=== PATIENT | female | born 1980 | race Caucasian/White ===

== ENCOUNTER 2017-01-21 20:29 | Emergency (ER) | payer OTHER ==
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
[2017-01-21 20:43] VITALS: BP 144/96; PULSE 90; TEMP 98.1; BMI 24.7
[2017-01-21] MEDS ORDERED: diphenhydrAMINE HCL 25 MG CAPSULE (FP) PO ONE (21:54)
[2017-01-21] MEDS ORDERED: METOCLOPRAMIDE HCL 10 MG TABLET (FP) PO ONE ×2 (21:55→21:57)
== END 2017-01-21 22:11 | disposition home or self-care (01) ==
LOC: FER 20:29
DX: S06.0X0A Concussion without loss of consciousness, initial encounter (principal); R51 Headache; Y04.2XXA Assault by strike against or bumped into by another person, initial encounter; X58.XXXA Exposure to other specified factors, initial encounter; Y93.89 Activity, other specified; Y92.159 Unspecified place in reform school as the place of occurrence of the external cause
CPT/HCPCS: 99281-25